=== PATIENT | female | born 1985 | race Caucasian/White ===

== ENCOUNTER 2018-04-27 08:20 | Day surgery (SDC) | payer OTHER ==
[2018-04-27] MEDS ORDERED: FENTAnyl 50 MCG/ML VIAL (09:54)
[2018-04-27] MEDS ORDERED: MIDAZOLAM 1 MG/ML 2 ML INJ (09:54)
[2018-04-27] MEDS ORDERED: PROPOFOL 20 ML ×2 (09:54→10:34)
== END 2018-04-27 11:11 | disposition home or self-care (01) ==
LOC: GIL 08:20
DX: K29.50 Unspecified chronic gastritis without bleeding (principal); B96.81 Helicobacter pylori [H. pylori] as the cause of diseases classified elsewhere; K25.9 Gastric ulcer, unspecified as acute or chronic, without hemorrhage or perforation; K21.0 Gastro-esophageal reflux disease with esophagitis; K64.8 Other hemorrhoids; K64.4 Residual hemorrhoidal skin tags; E66.9 Obesity, unspecified; Z68.43 Body mass index [BMI] 50.0-59.9, adult
CPT/HCPCS: 43239; 84703; 88305; 88312